=== PATIENT | male | born 1985 | race Caucasian/White ===

== ENCOUNTER 2017-03-11 22:02 | Emergency (ER) | payer SELFPAY ==
[~2017-03-11] VITALS: Ht 170.2 cm; Wt 90.0 kg
[2017-03-11 22:03] VITALS: BP 180/92; PULSE 63; RESP 16; TEMP 98.7; O2SAT 99
--- NOTE | 2017-03-11 22:16 | PD ---
Physical Exam Date Seen by Provider: Mar 11, 2017 Time Seen by Provider: 22:13 Narrative 31-year-old male presents to emergency Department with left flank pain for the past 2 days. Patient has had increasing pain, nausea, and one episode of vomiting. Patient denies fever or chills. He has a history of kidney stones in the past same area twice. Last time was approximately one half years ago. Currently his pain is 8 out of 10. Pain is intermittent and sharp and cramping. He denies diarrhea. Patient has no known drug allergies. Data Data Last Documented VS Vital Signs Date Time Temp Pulse Resp B/P (MAP) Pulse Ox O2 Delivery O2 Flow Rate FiO2 03/11/17 22:03 98.7 63 16 180/92 (121) 99 Room Air [facility] Medical Record Reviewed: Yes Supervised Visit with LILIANA: Yes Narrative Course Vital signs are stable. Urinalysis is ordered. Patient awaiting med bed placement. Condition: Stable Fabrice Man Mar 11, 2017 22:16
[2017-03-11 22:43] LABS: BLOOD, URINE MOD (NEG); CALCIUM OXALATE CRYSTALS,URINE RARE /hpf; COMMENT (UR) CULT NOT INDICATED; CULTURE IF INDICATED CULT NOT INDICATED; GLUCOSE,URINE NEG (NEG); KETONE, URINE 80 mg/dL (NEG); MUCUS URINE FEW /lpf (OCC); NITRITE,URINE NEG (NEG); PH, URINE 5.5 (5.0-8.5); URINE COLOR YELLOW (YELLW/STRAW)
[2017-03-11 22:57] VITALS: BP 178/91; PULSE 60; RESP 18; O2SAT 100
[2017-03-11] MEDS ORDERED: SODIUM CHLOR 0.9% 1000 ML INJ 1,000 ML IV SCH (23:06)
[2017-03-11] MEDS ORDERED: ONDANSETRON HCL 4 MG/2 ML VIAL IVP ONE (23:15)
[2017-03-11] MEDS ORDERED: SODIUM CHLORIDE 0.9% FLUSH 10 ML FLUSH IV FLUSH PRN (23:15)
[2017-03-11] MEDS ORDERED: MORPHINE SULFATE 4 MG/ML INJ IV PUSH ONE (23:15)
[2017-03-11] MEDS ORDERED: KETOROLAC TROMETHAMINE 30 MG/ML (IVP) VIAL IVP ONE (23:15)
[2017-03-11 23:35] VITALS: BP 158/75; PULSE 55; RESP 16; O2SAT 99
[2017-03-11 23:55] LABS: AUTOMATED NEUTROPHIL # 25.8 TH/MM3 (1.8-7.7); BASOPHIL # 0.1 TH/MM3 (0-0.2); BASOPHIL % 0.2 % (0.0-2.0); HEMATOCRIT 43.2 % (39.0-51.0); HEMO FLAGS DIFF FINAL; LYMPH % 5.7 % (9.0-44.0); LYMPHOCYTE # 1.6 TH/MM3 (1.0-4.8); MEAN CELL VOLUME 89.9 FL (80.0-100.0); MEAN CORPUSCULAR HEMOGLOBIN 29.9 PG (27.0-34.0); MEAN CORPUSCULAR HGB CONC 33.2 % (32.0-36.0); MONO % 4.2 % (0.0-8.0); NEUT % 89.9 % (16.0-70.0); PLATELET COUNT 488 TH/MM3 (150-450); RED BLOOD COUNT 4.81 MIL/MM3 (4.50-5.90); RED CELL DISTRIBUTION WIDTH 13.2 % (11.6-17.2); WHITE BLOOD COUNT 28.7 TH/MM3 (4.0-11.0)
[2017-03-12 00:05] LABS: ANION GAP 8 MEQ/L (5-15); AST (GOT) 15 U/L (15-37); BICARBONATE 25.3 MEQ/L (21.0-32.0); BLOOD UREA NITROGEN 12 MG/DL (7-18); CHLORIDE 97 MEQ/L (98-107); GLOMERULAR FILTRATION RATE 68 ML/MIN (>89); POTASSIUM 3.8 MEQ/L (3.5-5.1); SODIUM (NA) 130 MEQ/L (136-145)
[2017-03-12 00:06] LABS: ALT (GPT) 18 U/L (12-78)
[2017-03-12 00:09] LABS: ALKALINE PHOSPHATASE 107 U/L (45-117); TOTAL BILIRUBIN ADULT 0.4 MG/DL (0.2-1.0)
--- NOTE | 2017-03-12 00:20 | RADRPT ---
EXAM DATE/TIME: 03/11/2017 23:23 [place] COMPARISON: No previous studies available for comparison. INDICATIONS : Left flank pain. ORAL CONTRAST: No oral contrast ingested. RADIATION DOSE: 13.32 CTDIvol (mGy) MEDICAL HISTORY : Renal calculi. SURGICAL HISTORY : None. ENCOUNTER: Initial ACUITY: 1 day PAIN SCALE: 10/10 LOCATION: Left flank TECHNIQUE: Volumetric scanning of the abdomen and pelvis was performed. Using automated exposure control and ad justment of the mA and/or kV according to patient size, radiation dose was kept as low as reasonably achievable to obtain optimal diagnostic quality images. DICOM format image data is available electro nically for review and comparison. FINDINGS: LOWER LUNGS: The visualized lower lungs are clear. LIVER: Homogeneous density without lesion. There is no dilation of the biliary tree. No calcified gallston es. SPLEEN: Normal size without lesion. PANCREAS: Within normal limits. KIDNEYS: Normal in size and shape. There is no mass or hydronephrosis on the right. Nonobstructing calculus i n the right kidney measures 5-6 mm. Mild obstructive uropathy on the left secondary to a 6 mm proxima l ureteral calculus. ADRENAL GLANDS: Within normal limits. VASCULAR: There is no aortic aneurysm. BOWEL/MESENTERY: The stomach, small bowel, and colon demonstrate no acute abnormality. There is no free intraperitone al air or fluid. ABDOMINAL WALL: Within normal limits. RETROPERITONEUM: There is no lymphadenopathy. BLADDER: No wall thickening or mass. REPRODUCTIVE: Within normal limits. INGUINAL: There is no lymphadenopathy or hernia. MUSCULOSKELETAL: Within normal limits for patient age. CONCLUSION: 1. Mild obstructive drop within the left secondary to a proximal ureteral calculus measuring 6 mm. 2. Nonobstructing right renal calculus. Orestes Em MD on March 12, 2017 at 0:16 Board Certified Radiologist. This report was verified electronically.
[2017-03-12] MEDS ORDERED: CIPROFLOXACIN 500 MG TAB PO ONE (00:45)
[2017-03-12] MEDS ORDERED: oxyCODONE/ACETAMINOPHEN 5 MG/325 MG TAB PO ONE (00:45)
[2017-03-12] MEDS ORDERED: HYDR-3533 PO (01:47)
[2017-03-12] MEDS ORDERED: TAMS5CAP PO (01:47)
[2017-03-12] MEDS ORDERED: CIPR-9 PO (01:47)
--- NOTE | 2017-03-12 01:47 | PD ---
HPI Chief Complaint: Flank/Kidney Pain Time Seen by Provider: 22:59 Travel History International Travel<30 days: No Contact w/Intl Traveler<30days: No Traveled to known affect area: No History of Present Illness HPI Patient is a 31-year-old male comes in complaining of left flank pain. He says the pain started a few days ago and has gotten worse. He says that he has passed kidney stones in the past, and this feels that way, however he is never seen a doctor for this. He denies fever or chills. He says he's had some nausea, no vomiting. He says the pain wraps around into the front of his abdomen. He has taken some ibuprofen for the pain with minimal relief. [facility] Past Medical History Diminished Hearing: No Kidney Stones: Yes Tetanus Vaccination: Unknown Influenza Vaccination: No Past Surgical History Surgical History: No Previous Surgery Social History Alcohol Use: No Tobacco Use: No Substance Use: No Allergies-Medications (Allergen,Severity, Reaction): Coded Allergies: No Known Allergies (Unverified , 03/11/17) Reported Meds & Prescriptions Reported Meds & Active Scripts Active No Active Prescriptions or Reported Medications Review of Systems Except as stated in HPI: all other systems reviewed are Neg General / Constitutional: No: Fever, Chills HENT: No: Headaches, Lightheadedness Cardiovascular: No: Chest Pain or Discomfort Respiratory: No: Shortness of Breath Gastrointestinal: Positive: Nausea, Abdominal Pain, No: Vomiting Genitourinary: Positive: Flank Pain, No: Dysuria Musculoskeletal: No: Myalgias, Edema Skin: No Rash, No Change in Pigmentation Neurologic: No: Weakness, Dizziness Physical Exam Narrative GENERAL: Awake and alert, in no acute distress. SKIN: Focused skin assessment warm/dry. No signs of infection. HEAD: Atraumatic. Normocephalic. EYES: Pupils equal and round. No scleral icterus. ENT: Mucous membranes pink and moist. NECK: Trachea midline. No JVD. CARDIOVASCULAR: Regular rate and rhythm. No murmur appreciated. RESPIRATORY: No accessory muscle use. Clear to auscultation. Breath sounds equal bilaterally. GASTROINTESTINAL: Abdomen soft, nondistended. Tender to palpation of the left lower quadrant. Left-sided CVA tenderness. MUSCULOSKELETAL: No obvious deformities. No clubbing. No cyanosis. No edema. NEUROLOGICAL: Awake and alert. No obvious cranial nerve deficits. Motor grossly within normal limits. Normal speech. PSYCHIATRIC: Appropriate mood and affect; insight and judgment normal. Data Data Last Documented VS Vital Signs Date Time Temp Pulse Resp B/P (MAP) Pulse Ox O2 Delivery O2 Flow Rate FiO2 03/11/17 23:35 55 16 158/75 (102) 99 Room Air 03/11/17 22:03 98.7 Orders Orders Urinalysis - C+S If Indicated (03/11/17 22:17) Complete Blood Count With Diff (03/11/17 23:06) Comprehensive Metabolic Panel (03/11/17 23:06) Ct Abd/Pel W/O Iv Contrast (03/11/17 23:06) Iv Access Insert/Monitor (03/11/17 23:) Ecg Monitoring (03/11/17 23:) Oximetry (03/11/17 23:06) Morphine Inj (Morphine Inj) (03/11/17 23:15) Ondansetron Inj (Zofran Inj) (03/11/17 23:15) Sodium Chlor 0.9% 1000 Ml Inj (Ns 1000 M (03/11/17 23:06) Sodium Chloride 0.9% Flush (Ns Flush) (03/11/17 23:15) Ketorolac Inj (Toradol Inj) (03/11/17 23:15) Ciprofloxacin (Cipro) (03/12/17 00:45) Oxycodone-Acetamin 5-325 Mg (Percocet (03/12/17 00:45) Labs Laboratory Tests Test 03/11/17 22:25 03/11/17 23:15 Urine Color YELLOW Urine Turbidity CLEAR Urine pH 5.5 Urine Specific [place] 1.026 Urine Protein TRACE mg/dL Urine Glucose (UA) NEG mg/dL Urine Ketones 80 mg/dL Urine Occult Blood MOD Urine Nitrite NEG Urine Bilirubin NEG Urine Urobilinogen LESS THAN 2.0 MG/DL Urine Leukocyte Esterase SMALL Urine RBC 34 /hpf Urine WBC 3 /hpf Urine Calcium Oxalate Crystals RARE /hpf Urine Mucus FEW /lpf Microscopic Urinalysis Comment CULT NOT INDICATED White Blood Count 28.7 TH/MM3 Red Blood Count 4.81 MIL/MM3 Hemoglobin 14.4 GM/DL Hematocrit 43.2 % Mean Corpuscular Volume 89.9 FL Mean Corpuscular Hemoglobin 29.9 PG Mean Corpuscular Hemoglobin Concent 33.2 % Red Cell Distribution Width 13.2 % Platelet Count 488 TH/MM3 Mean Platelet Volume 9.1 FL Neutrophils (%) (Auto) 89.9 % Lymphocytes (%) (Auto) 5.7 % Monocytes (%) (Auto) 4.2 % Eosinophils (%) (Auto) 0.0 % Basophils (%) (Auto) 0.2 % Neutrophils # (Auto) 25.8 TH/MM3 Lymphocytes # (Auto) 1.6 TH/MM3 Monocytes # (Auto) 1.2 TH/MM3 Eosinophils # (Auto) 0.0 TH/MM3 Basophils # (Auto) 0.1 TH/MM3 CBC Comment DIFF FINAL Differential Comment Blood Urea Nitrogen 12 MG/DL Creatinine 1.23 MG/DL Random Glucose 115 MG/DL Total Protein 8.2 GM/DL Albumin 4.1 GM/DL Calcium Level 9.1 MG/DL Alkaline Phosphatase 107 U/L Aspartate Amino Transf (AST/SGOT) 15 U/L Alanine Aminotransferase (ALT/SGPT) 18 U/L Total Bilirubin 0.4 MG/DL Sodium Level 130 MEQ/L Potassium Level 3.8 MEQ/L Chloride Level 97 MEQ/L Carbon Dioxide Level 25.3 MEQ/L Anion Gap 8 MEQ/L Estimat Glomerular Filtration Rate 68 ML/MIN MDM Medical Decision Making Medical Screen Exam Complete: Yes Emergency Medical Condition: Yes Medical Record Reviewed: Yes Differential Diagnosis UTI versus pyelonephritis versus renal stone. Narrative Course Patient is a 31-year-old male comes in complaining of left-sided flank pain. Exam shows left CVA tenderness. IV established, labs sent. Labs show a white blood cell count of 28. CT abdomen and pelvis shows a left-sided obstructing stone, 6 mm. Patient given IV fluids, Zofran, morphine, Toradol. Given a dose of Cipro and a Percocet for continued pain. Patient informed of his results and the elevated white blood cell count. He is advised to have this rechecked after this acute event. I spoke with Dr. Soliz of urology, who says he will see the patient in the morning at the office. Patient advised to follow-up with Dr. Soliz tomorrow. Mandatory referral placed. Patient is comfortable after medications. Given prescriptions for Cipro, Lortab , Flomax. Advised to return any time for any worsening symptoms. Diagnosis Primary Impression: Renal stone Referrals: Chalino Soliz MD call for appointment Patient Instructions: General Instructions, Kidney Stones (ED) Additional Instructions: Call Dr. Soliz tomorrow morning for follow-up appointment. Take all of your antibiotic. Take pain medicine as needed. Return to the ED as needed for any worsening symptoms. Drink plenty of fluids. Scripts Hydrocodone-Acetaminophen (Lortab) 5-325 Mg Tab 1 TAB PO Q6H Y for PAIN, #12 TAB 0 Refills Prov: Ailyn Phillips MD 03/12/17 Tamsulosin (Flomax) 0.4 Mg Cap 0.4 MG PO HS for Manage Prostate Problems, #7 CAP 0 Refills Prov: Ailyn Phillips MD 03/12/17 Ciprofloxacin (Cipro) 500 Mg Tab 500 MG PO BID for Infection for 7 Days, #14 TAB 0 Refills Prov: Ailyn Phillips MD 03/12/17 Disposition: 01 DISCHARGE HOME Condition: Stable Ailyn Phillips MD Mar 12, 2017 01:47
[2017-03-12 01:53] VITALS: BP 151/66; TEMP 98.9
== END 2017-03-12 01:55 | disposition home or self-care (01) ==
LOC: NEPC 22:02
DX: N20.0 Calculus of kidney (principal); Z87.442 Personal history of urinary calculi; R11.0 Nausea
CPT/HCPCS: 74176; 80053; 81001; 85025; 96361; 96374; 96375; 99285; J1885; J2270; J2405; J7030